=== PATIENT | female | born 1980 | race American Indian/Alaskan Native ===

== ENCOUNTER 2016-05-31 09:46 | Outpatient (CLI) | payer MEDICARE | END 2016-05-31 09:47 | disposition home or self-care (01) | LOC: LABHHL 09:46 | PROVIDERS: ATTEND Otolaryngology | DX: J34.9 Unspecified disorder of nose and nasal sinuses (principal) | CPT/HCPCS: 88304; 88305; 88311 ==

== ENCOUNTER 2019-01-10 00:35 | Emergency (ER) | payer MEDICARE, MEDICAID ==
[2019-01-10] MEDS ORDERED: diphenhydrAMINE 50 MG/ML VIAL IM ONE (01:15)
[2019-01-10] MEDS ORDERED: dexAMETHasone 20 MG/5 ML VIAL IM ONE (01:15)
--- NOTE | 2019-01-10 01:18 | Emergency Department Report ---
ED General Adult HPI - General Chief complaint: Allergic Reaction Stated complaint: ALLERGIC REACTION Time Seen by Provider: 01/10/19 01:14 Source: patient Mode of arrival: Ambulatory Limitations: No Limitations - History of Present Illness Initial comments: 38-year-old -[place] female presents to the emergency room for allergic reaction with a generalized raised rash and redness that started last night after she ate a burger with mushrooms on it. Patient reports that she had taken Benadryl and use cortisone cream about 4 PM. Patient denies any shortness of breath denies any chest pain or difficulty swallowing. She reports that she has a past medical history of epilepsy -: This afternoon Location: head, face, neck, left, right, upper extremity, lower extremity Severity scale (0 -10): 0 Consistency: constant Improves with: none Associated Symptoms: denies other symptoms Treatments Prior to Arrival: other (Benadryl and cortisone cream) - Related Data Home Medications Medication Instructions Recorded Confirmed Last Taken Budesoni/Formoterol 80-4.5(Nf) 2 puff IH TID 07/22/13 11/22/13 11/21/13 09:00 [Symbicort 80-4.5] Cyclobenzaprine [Flexeril] 1 tab PO BID 07/22/13 11/22/13 11/21/13 09:00 Dexlansoprazole [Dexilant] 1 tab PO QDAY 07/22/13 11/22/13 11/21/13 09:00 Escitalopram Oxalate [Lexapro] 1 tab PO QDAY 07/22/13 11/22/13 11/21/13 09:00 Ezogabine [Potiga] 1 tab PO TID 07/22/13 11/22/13 11/21/13 09:00 Lacosamide [Vimpat] 1 tab PO TID 07/22/13 11/22/13 11/21/13 09:00 Topiramate 100 mg PO BID 09/21/13 11/22/13 11/21/13 09:00 medroxyPROGESTERone ACETATE 2 tab PO DAILY 09/21/13 11/22/13 11/21/13 09:00 [Provera] Celecoxib [Celebrex] 1 tab PO DAILY 11/22/13 11/22/13 11/21/13 09:00 Previous Rx's Medication Instructions Recorded Last Taken Type oxyCODONE /ACETAMINOPHEN [Percocet 1 tab PO Q6HR PRN #10 tablet 09/23/13 11/21/13 09:00 Rx 5/325 mg] Famotidine [Pepcid] 20 mg PO BID #10 tablet 01/10/19 Unknown Rx Prednisone [predniSONE 10 mg 10 mg PO .TAPER #1 tab.ds.pk 01/10/19 Unknown Rx (6-Day Pack, 21 Tabs)] diphenhydrAMINE [Benadryl CAP] 25 mg PO Q8HR PRN #15 capsule 01/10/19 Unknown Rx Allergies Allergy/AdvReac Type Severity Reaction Status Date / Time No Known Allergies Allergy Verified 11/22/13 05:36 ED Review of Systems ROS: Stated complaint: ALLERGIC REACTION Other details as noted in HPI Comment: All other systems reviewed and negative ED Past Medical Hx - Past Medical History Previous Medical History?: Yes Hx GERD: Yes Hx Arthritis: Yes (rheumatoid) Hx Seizures: Yes (LAST SEIZURE 04/2013, SYNCOPE 09/2013) Hx Asthma: Yes Additional medical history: anxiety - Surgical History Past Surgical History?: Yes Additional Surgical History: stimulator for seizure control. left wrist surgery, Tubaligation - Social History Smoking Status: Never Smoker Substance Use Type: Marijuana - Medications Home Medications: Home Medications Medication Instructions Recorded Confirmed Last Taken Type Budesoni/Formoterol 80-4.5(Nf) 2 puff IH TID 07/22/13 11/22/13 11/21/13 09:00 History [Symbicort 80-4.5] Cyclobenzaprine [Flexeril] 1 tab PO BID 07/22/13 11/22/13 11/21/13 09:00 History Dexlansoprazole [Dexilant] 1 tab PO QDAY 07/22/13 11/22/13 11/21/13 09:00 History Escitalopram Oxalate [Lexapro] 1 tab PO QDAY 07/22/13 11/22/13 11/21/13 09:00 History Ezogabine [Potiga] 1 tab PO TID 07/22/13 11/22/13 11/21/13 09:00 History Lacosamide [Vimpat] 1 tab PO TID 07/22/13 11/22/13 11/21/13 09:00 History Topiramate 100 mg PO BID 09/21/13 11/22/13 11/21/13 09:00 History medroxyPROGESTERone ACETATE 2 tab PO DAILY 09/21/13 11/22/13 11/21/13 09:00 History [Provera] oxyCODONE /ACETAMINOPHEN [Percocet 1 tab PO Q6HR PRN #10 tablet 09/23/13 11/22/13 11/21/13 09:00 Rx 5/325 mg] Celecoxib [Celebrex] 1 tab PO DAILY 11/22/13 11/22/13 11/21/13 09:00 History Famotidine [Pepcid] 20 mg PO BID #10 tablet 01/10/19 Unknown Rx Prednisone [predniSONE 10 mg 10 mg PO .TAPER #1 tab.ds.pk 01/10/19 Unknown Rx (6-Day Pack, 21 Tabs)] diphenhydrAMINE [Benadryl CAP] 25 mg PO Q8HR PRN #15 capsule 01/10/19 Unknown Rx ED Physical Exam - General Limitations: No Limitations General appearance: alert, in no apparent distress - Head Head exam: Present: atraumatic, normocephalic - Eye Eye exam: Present: normal appearance - ENT ENT exam: Present: mucous membranes moist - Respiratory Respiratory exam: Present: normal lung sounds bilaterally. Absent: respiratory distress - Cardiovascular Cardiovascular Exam: Present: regular rate, normal rhythm. Absent: systolic murmur, diastolic murmur, rubs, gallop - Extremities Exam Extremities exam: Present: full ROM - Back Exam Back exam: Present: full ROM - Neurological Exam Neurological exam: Present: alert, oriented X3, normal gait - Psychiatric Psychiatric exam: Present: normal affect, normal mood - Skin Skin exam: Present: urticaria - Expanded Skin Exam Expanded Type of lesion: Present: rash Distribution of rash: face, RUE, LUE Description of rash: Present: urticarial ED Course Vital Signs 01/10/19 00:46 Temperature 98.1 F Pulse Rate 61 Respiratory 18 Rate Blood Pressure 121/75 O2 Sat by Pulse 97 Oximetry - Reevaluation(s) Reevaluation #1: 01/10/19 02:36 Provider reevaluated patient swelling seems to have improved the patient still has multiple urticaria lesions some with clear fluid. 09/28/19 02:37 Patient reports she seems to feel better. ED Medical Decision Making - Medical Decision Making 38-year-old -[place] female presents to the emergency room for allergic reaction with generalized raised rash and redness that started last night after she ate a burger with mushrooms on it. Patient reports that she had taken Benadryl and use cortisone cream about 4 PM. Patient denies any shortness of breath denies any chest pain or difficulty swallowing. She reports that she has a past medical history of epilepsy. Patient is ordered Pepcid 20 mg by mouth, Benadryl 50 mg IM and dexamethasone 10 mg IM. Critical care attestation.: If time is entered above; I have spent that time in minutes in the direct care of this critically ill patient, excluding procedure time. ED Disposition Clinical Impression: Allergic reaction to food Disposition: DC-01 TO HOME OR SELFCARE Is pt being admited?: No Does the pt Need Aspirin: No Condition: Stable Instructions: Urticaria (ED), Food Allergy (ED) Additional Instructions: Take medications as prescribed. I highly recommend free to follow-up with her primary care provider to have allergy testing. I'll also refer him to an blender operator. Prescriptions: diphenhydrAMINE [Benadryl CAP] 25 mg PO Q8HR PRN #15 capsule PRN Reason: Allergic Reaction Famotidine [Pepcid] 20 mg PO BID #10 tablet Prednisone [predniSONE 10 mg (6-Day Pack, 21 Tabs)] 10 mg PO .TAPER #1 tab.ds.pk Referrals: NEDA VAZQUEZ MD [Referring] - 3-5 Days MARIELLE HOGAN MD [Primary Care Provider] - 3-5 Days ARCELIA BUSTOS MD [Referring] - 3-5 Days
[2019-01-10 03:35] VITALS: BP 118/78
== END 2019-01-10 03:38 | disposition home or self-care (01) ==
LOC: ED 00:35
DX: T78.1XXA Other adverse food reactions, not elsewhere classified, initial encounter (principal); K21.9 Gastro-esophageal reflux disease without esophagitis; J45.909 Unspecified asthma, uncomplicated; F31.9 Bipolar disorder, unspecified; M06.9 Rheumatoid arthritis, unspecified; F12.10 Cannabis abuse, uncomplicated; Z98.51 Tubal ligation status; Z98.890 Other specified postprocedural states; Z79.899 Other long term (current) drug therapy; X58.XXXA Exposure to other specified factors, initial encounter
CPT/HCPCS: 96372; 99282; J1100; J1200